=== PATIENT | male | born 1955 | race Two or more races ===

== ENCOUNTER 2021-06-30 09:46 | Emergency (ER) | payer MEDICARE, OTHER ==
--- NOTE | 2021-06-30 10:32 | CR ---
Chest: Portable view of the chest was obtained. Comparison: Prior chest x-ray of 05/13/14. Heart size and mediastinum are normal. Lungs are clear with no acute parenchymal change. Scattered disc space narrowing and endplate spurring is noted within the spine. Impression: 1. Findings as noted above. 2. Nothing acute is appreciated on portable chest x-ray. Diagnostic code #2
--- NOTE | 2021-06-30 11:21 | EDM.PDOC ---
ED HPI GENERAL MEDICAL PROBLEM - General Chief Complaint: Chest Pain Stated Complaint: CHEST PAIN X 1 WEEK Time Seen by Provider: 06/30/21 10:05 Source of Information: Reports: Patient, RN Notes Reviewed - History of Present Illness INITIAL COMMENTS - FREE TEXT/NARRATIVE: 66yr old male comes in with R sided chest pain that has been present much of the time for about the past week. Mainly concerned that it has not gone away. Certain types of motion such as "bending down" seem to make it worse. Very occasional cough. No known hx of CAD. He is diabetic. He does not smoke. Chest Pain Score (Numeric/FACES): 9 - Related Data Allergies Allergy/AdvReac Type Severity Reaction Status Date / Time No Known Allergies Allergy Verified 06/30/21 09:52 Home Meds: Home Meds Aspirin [Low Dose Aspirin EC] 81 mg PO DAILY 05/13/14 [History] Codeine/Promethazine [Phenergan with Codeine] 5 - 10 ml PO Q4HR PRN #60 ml 05/13/14 [Rx] Insulin Glargine,Hum.Rec.Anlog [Lantus Solostar] 20 unit SQ DAILY 05/13/14 [History] Lisinopril 40 mg PO DAILY 05/13/14 [History] Sildenafil [Viagra] 50 mg PO BEDTIME PRN 05/13/14 [History] Simvastatin [Zocor] 10 mg PO BEDTIME 05/13/14 [History] Spironolactone [Aldactone] 25 mg PO DAILY 05/13/14 [History] amLODIPine [Norvasc] 10 mg PO DAILY 05/13/14 [History] hydroCHLOROthiazide [Hydrochlorothiazide] 25 mg PO DAILY 05/13/14 [History] levoFLOXacin [Levaquin] 750 mg PO DAILY #4 tab 05/13/14 [Rx] metFORMIN [Glucophage] 1,000 mg PO BID 05/13/14 [History] Past Medical History Cardiovascular History: Reports: High Cholesterol, Hypertension Respiratory History: Reports: Pneumonia, Recurrent Endocrine/Metabolic History: Reports: Diabetes, Type II - Past Surgical History GI Surgical History: Reports: Cholecystectomy Musculoskeletal Surgical History: Reports: Shoulder Surgery Social & Family History - Tobacco Use Tobacco Use Status *Q: Never Tobacco User Second Hand Smoke Exposure: No - Caffeine Use Caffeine Use: Reports: Coffee - Recreational Drug Use Recreational Drug Use: No ED ROS GENERAL - Review of Systems Review Of Systems: See Below Constitutional: Denies: Fever, Chills, Diaphoresis HEENT: Reports: No Symptoms Respiratory: Reports: Pleuritic Chest Pain. Denies: Shortness of Breath Cardiovascular: Reports: Chest Pain GI/Abdominal: Denies: Abdominal Pain, Nausea, Vomiting Musculoskeletal: Denies: Shoulder Pain, Arm Pain, Back Pain Skin: Reports: No Symptoms Neurological: Reports: No Symptoms ED EXAM, GENERAL - Physical Exam Exam: See Below General Appearance: Alert, No Apparent Distress Eye Exam: Bilateral Eye: PERRL Head: Atraumatic Neck: Supple Respiratory/Chest: No Respiratory Distress, Lungs Clear, Other (area of very mild tenderness R mid chest). No: Rales, Rhonchi, Wheezing Cardiovascular: Regular Rate, Rhythm GI/Abdominal: Soft, Non-Tender Extremities: Normal Inspection. No: Pedal Edema, Leg Pain, Increased Warmth, Redness Neurological: Alert, Oriented, No Motor/Sensory Deficits Skin Exam: Warm, Dry, Normal Color #1 Interpretation EKG Date: 06/30/21 [place]: Normal P-Wave: Present QRS: Other (q waves inf. leads) ST-T: Normal Course - Vital Signs Last Recorded V/S: Last Vital Signs Temp 97.1 F 06/30/21 09:50 Pulse 70 06/30/21 09:50 Resp 17 06/30/21 09:50 BP 146/76 H 06/30/21 09:50 Pulse Ox 99 06/30/21 09:50 - Orders/Labs/Meds Labs: Laboratory Tests 06/30/21 06/30/21 Range/Units 09:56 09:56 WBC 7.60 (4.23-9.07) K/mm3 RBC 5.01 (4.63-6.08) M/mm3 Hgb 15.7 D (13.7-17.5) gm/dl Hct 45.9 (40.1-51.0) % MCV 91.6 (79.0-92.2) fl MCH 31.3 (25.7-32.2) pg MCHC 34.2 (32.2-35.5) g/dl RDW Std Deviation 42.4 (35.1-43.9) fL Plt Count 225 (163-337) K/mm3 MPV 10.9 (9.4-12.3) fl Neut % (Auto) 62.7 (34.0-67.9) % Lymph % (Auto) 22.8 (21.8-53.1) % Stokes % (Auto) 9.5 (5.3-12.2) % Eos % (Auto) 4.1 (0.8-7.0) Baso % (Auto) 0.5 (0.1-1.2) % Neut # (Auto) 4.77 (1.78-5.38) K/mm3 Lymph # (Auto) 1.73 (1.32-3.57) K/mm3 Stokes # (Auto) 0.72 (0.30-0.82) K/mm3 Eos # (Auto) 0.31 (0.04-0.54) K/mm3 Baso # (Auto) 0.04 (0.01-0.08) K/mm3 Sodium 140 (136-145) mEq/L Potassium 4.6 (3.5-5.1) mEq/L Chloride 105 (98-107) mEq/L Carbon Dioxide 28 (21-32) mEq/L Anion Gap 11.6 (5-15) BUN 20 H (7-18) mg/dL Creatinine 1.0 (0.7-1.3) mg/dL Est Cr Clr Drug Dosing 66.10 mL/min Estimated GFR (MDRD) > 60 (>60) mL/min BUN/Creatinine Ratio 20.0 H (14-18) Glucose 197 H (70-99) mg/dL Calcium 9.0 (8.5-10.1) mg/dL Total Bilirubin 0.4 (0.2-1.0) mg/dL AST 23 (15-37) U/L ALT 46 (16-63) U/L Alkaline Phosphatase 70 (46-116) U/L CK-MB (CK-2) 4.7 H (0-3.6) ng/ml Troponin I < 0.017 (0.00-0.056) ng/mL Total Protein 7.6 (6.4-8.2) g/dl Albumin 3.9 (3.4-5.0) g/dl Globulin 3.7 gm/dL Albumin/Globulin Ratio 1.1 (1-2) - Re-Assessments/Exams Free Text/Narrative Re-Assessment/Exam: 06/30/21 15:47 CXR, trop, other labs normal, He does do a fair amt of lifting with his work, discharge instr. as documented. Departure - Departure Time of Disposition: 11:49 Disposition: Home, Self-Care 01 Condition: Fair Clinical Impression: Atypical chest pain, Chest wall pain Instructions: Chest Wall Pain Referrals: Nasim Dick MD [Primary Care Provider] - Forms: ED Department Discharge Additional Instructions: Alternate ice and heat as needed to area of discomfort. Tylenol 2 to 3 times daily as needed. Avoid heavy lifting this week. Follow up clinic if discomfort not gone within 3 to 5 days as expected. Return to ED as needed if symptoms worsening in any way. Sepsis Event Note (ED) - Evaluation Sepsis Screening Result: No Definite Risk - Focused Exam Vital Signs: Vital Signs Temp Pulse Resp BP Pulse Ox 06/30/21 09:50 97.1 F 70 17 146/76 H 99
== END 2021-06-30 12:00 | disposition home or self-care (01) ==
LOC: JD.ED 09:46
DX: R07.89 Other chest pain (principal); E78.00 Pure hypercholesterolemia, unspecified; I10 Essential (primary) hypertension; E11.9 Type 2 diabetes mellitus without complications; Z79.899 Other long term (current) drug therapy; Z79.82 Long term (current) use of aspirin; Z79.4 Long term (current) use of insulin
CPT/HCPCS: 36415; 71045; 71045-26; 80053; 82553; 84484; 85025; 93005; 93010; 99283; 99285-25

== ENCOUNTER 2024-11-27 10:32 | Emergency (ER) | payer MEDICARE, OTHER ==
[2024-11-27] MEDS ORDERED: Sodium Chloride 0.9% 10 ML Syringe FLUSH PRN (11:04)
[2024-11-27 11:38] LABS: BASOPHILS PERCENT AUTO 0.3 % (0.0-1.0); EOSINOPHILS PERCENT AUTO 0.3 % (0.0-6.0); IMMATURE GRAN ABSOLUTE AUTO 0.06 K/mm3 (0.00-0.05); IMMATURE GRAN PERCENT AUTO 0.6 % (0.0-0.4); LYMPHOCYTES ABSOLUTE AUTO 0.9 K/mm3 (1.0-4.8); LYMPHOCYTES PERCENT AUTO 8.5 % (24.0-44.0); MEAN CORPUSCULAR HEMOGLOBIN 31.3 pg (28.0-32.0); MONOCYTES ABSOLUTE AUTO 0.4 K/mm3 (0.0-0.8); MONOCYTES PERCENT AUTO 3.9 % (0.0-8.0); NEUTROPHILS ABSOLUTE AUTO 8.7 K/mm3 (1.8-7.7); NEUTROPHILS PERCENT AUTO 86.4 % (41.0-71.0); PLATELET COUNT,PLT 175 K/mm3 (150-400); RED BLOOD CELL COUNT 5.11 M/mm3 (4.52-5.90); WHITE BLOOD CELL COUNT,WBC 10.09 K/mm3 (3.9-11.3)
[2024-11-27 11:59] LABS: A/G RATIO 1.2 (1-2); ALANINE AMINOTRANSFERASE,ALT 39 U/L (16-63); ALBUMIN 3.9 g/dl (3.4-5.0); ALKALINE PHOSPHATASE 70 U/L (46-116); ANION GAP 12.3 (5-15); ASPARTATE AMNIOTRANSFERASE,AST 26 U/L (15-37); BILIRUBIN TOTAL 0.7 mg/dL (0.2-1.0); BLOOD UREA NITROGEN,BUN 19 mg/dL (7-18); BUN/CREATININE RATIO 13.6 (14-18); CARBON DIOXIDE,CO2 27 mEq/L (21-32); CHLORIDE,CL 101 mEq/L (98-107); CREATININE 1.4 mg/dL (0.7-1.3); ESTIMATED GFR 54 mL/min (>60); GLUCOSE RANDOM 192 mg/dL (70-99); POTASSIUM,K 4.3 mEq/L (3.5-5.1); PROTEIN TOTAL,TP 7.2 g/dl (6.4-8.2); SODIUM,NA 136 mEq/L (136-145)
[2024-11-27 12:02] LABS: C-REACTIVE PROTEIN < 0.05 mg/dL (<0.30); TROPONIN I HIGH SENSITIVITY < 4 pg/mL (<=76)
[2024-11-27] MEDS: Sodium Chloride 0.9% 1,000 ML IV STA (12:12)
== END 2024-11-27 14:53 | disposition home or self-care (01) ==
LOC: JD.ED 10:32
DX: R06.02 Shortness of breath (principal); R42 Dizziness and giddiness; I10 Essential (primary) hypertension; E78.00 Pure hypercholesterolemia, unspecified; E11.9 Type 2 diabetes mellitus without complications; Z86.16 Personal history of COVID-19; F17.210 Nicotine dependence, cigarettes, uncomplicated; Z79.82 Long term (current) use of aspirin; Z79.899 Other long term (current) drug therapy; Z79.4 Long term (current) use of insulin; Z88.8 Allergy status to other drugs, medicaments and biological substances
CPT/HCPCS: 36415; 71046; 80053; 83880; 84484; 85025; 85379; 86140; 87428; 93005; 96360; 99285; J7030